=== PATIENT | male | born 1930 | race Caucasian/White ===

== ENCOUNTER 2016-05-30 09:55 | Inpatient (IN) | payer MEDICARE, OTHER ==
[2016-05-30] VITALS (8 sets, daily range): BP systolic 110–150; BP diastolic 58–67; O2SAT 95
[~2016-05-30] VITALS: Ht 165.1 cm; Wt 84.8 kg
[2016-05-30] MEDS ORDERED: ASPIRIN 81 MG CHEW TABLET PO ONE (10:15)
[2016-05-30] MEDS ORDERED: IPRATROPIUM 0.5MG/ALBUTEROL 2.5MG INH SOL UD 3ML (DUONEB)(J7620) NEB ONE ×3 (10:15→18:15)
[2016-05-30] MEDS ORDERED: methylPREDNISolone INJ 125 MG/2 ML VIAL (J2930) IV ONE (10:15)
[2016-05-30] MEDS ORDERED: cefTRIAXone SOD 2 GM in D5W MINI-BAG PLUS 50 ML IV ONE (10:30)
[2016-05-30] MEDS ORDERED: AZITHROMYCIN INJ 500 MG, VIAL MATE ADAPTER 1 EACH in D5W 250 ML IV ONE (10:30)
[2016-05-30] MEDS ORDERED: DILUENT IV ONE (10:45)
[2016-05-30] MEDS ORDERED: NS IV ONE (10:45)
[2016-05-30 11:07] LABS: CALCIUM LEVEL 8.2 MG/DL (8.8-10.2); CREATININE FOR GFR 3.91 MG/DL (0.70-1.30); GLOMERULAR FILTRATION RATE 15.7 (>35); POTASSIUM SERUM 3.8 MEQ/L (3.5-5.1)
[2016-05-30 11:08] LABS: MEAN CORPUSCULAR HEMOGLOBIN 29.7 pg (27.0-33.0); MEAN CORPUSCULAR VOLUME 87.4 fl (80.0-96.0); PLATELET COUNT, AUTOMATED 126 k/mm3 (150-450); RED CELL DISTRIBUTION WIDTH 13.3 % (11.5-14.5)
[2016-05-30 11:27] LABS: BANDS 17 % (< 11); POIKILOCYTOSIS 1+
--- NOTE | 2016-05-30 11:34 | REP ---
AP PORTABLE CHEST: 05/30/2016 CLINICAL HISTORY: Cough, dyspnea. FINDINGS: No prior study. Lungs are hyperinflated. There is a peripheral opacity fairly extensive right mid and lower lung zone. This suggests consolidative pneumonia. Underlying mass could be obscured. There is a small of pleural effusion suggestive of blunting of the right CP angle. Left lung is without infiltrate or effusion. There is underlying fibrosis. Heart size borderline for portable technique. The aorta is mildly tortuous. IMPRESSION: 1. Large consolidative opacity right mid and lower lung zone peripherally extending towards the hilum. Small right effusion. Left lung clear. Pneumonia suspected. Underlying obscured lesion could not be entirely excluded. Please correlate clinically. Signed by Dung Fishman MD 05/30/2016 05:14 P
[2016-05-30] MEDS ORDERED: ATEN50TA2 PO (11:50)
[2016-05-30] MEDS ORDERED: BAYE81TA7 PO (11:50)
[2016-05-30] MEDS ORDERED: ALBU0.63 INH (11:50)
[2016-05-30] MEDS ORDERED: [UNRECOGNIZED DRUG - CODE] PO (11:50)
[2016-05-30] MEDS ORDERED: HYDR25TAB PO (11:50)
[2016-05-30] MEDS ORDERED: ONDANSETRON 4MG/2ML VIAL (J2405) IV PRN (12:30)
[2016-05-30] MEDS ORDERED: NS 1,000 ML IV ONE (12:30)
--- NOTE | 2016-05-30 14:44 | ECGEPIP ---
Stationary ECG Study [facility] - ED Test Date: 2016-05-30 Pat Name: LEONID BENITEZ Department: Room: - Gender: M Application Support Consultant: : [id number] Requested By: Radha Marks Order Number: [id number] Reading MD: Joey River Measurements Intervals [place] Rate: 85 P: 44 [place]: 180 QRS: 27 QRSD: 85 T: 49 QT: 366 QTc: 436 Interpretive Statements SINUS RHYTHM NO PRIORS Electronically Signed On 05-30-2016 14:44:03 EDT by Joey River
--- NOTE | 2016-05-30 15:05 | REP ---
CT CHEST WITHOUT CONTRAST: 05/30/2016 COMPARISON: Portable chest today. CLINICAL HISTORY: Fever, chills, cough. Abnormal chest x-ray. FINDINGS: Scanning through the chest with coronal and sagittal reconstructions provided. There is extensive peripheral consolidation in the right upper, middle and lower lobes as well as deep sulcus consolidative atelectasis or infiltrate in the right lower lobe. There is a small effusion posteriorly in the lower lung zone. I do not see definite mass. There is slight volume loss in the right hemithorax and some compensatory hyperinflation of the left lung. Some underlying fibrosis and COPD noted. The left lung showed no acute finding. Heart borderline size but no pericardial thickening or effusion. A few small sub-centimeter nodes in the mediastinum. Calcifications in the aorta without aneurysm. No axillary, or supraclavicular mass. Bone windows show no acute finding in the sternum, manubrium, medial heads of the clavicles, humeral heads, scapulae or ribs. There are degenerative changes in the spine without acute compression deformity of destructive lesion. In the upper abdomen that portion of liver and spleen included show no mass or focal lesion. No glands are intact. That portion of the pancreas included normal gallbladder without calcified stone. Upper poles kidneys intact. No hiatal hernia. IMPRESSION: 1. Extensive peripheral consolidation and some air bronchograms right upper lobe, some in the superior segment right lower lobe and minimally in the lateral segment of the right middle lobe. This represents acute pneumonia. No gross mass or adenopathy at the hilum and mediastinum. Recommend followup radiographically to confirm clearing of the infiltrate. No other acute finding. Signed by Dung Fishman MD 05/30/2016 05:20 P
[2016-05-30] MEDS ORDERED: NS 1,000 ML IV SCH (15:45)
[2016-05-30] MEDS: CYANOCOBALAMIN 250 MCG TABLET PO SCH (16:29)
--- NOTE | 2016-05-30 16:56 | REP ---
RENAL ULTRASOUND: Real-time sonographic evaluation of the kidneys performed. The kidneys are normal in size and echotexture, the right kidney measuring 11.5 x 4.6 x 4.6 cm and left kidney 10.8 x 3.5 x 4.6 cm. There is no hydronephrosis bilaterally. There is no renal mass or nephrolithiasis identified. The urinary bladder is not well distended and not well evaluated. IMPRESSION: Negative renal ultrasound. Signed by Ren Galindo MD 05/31/2016 04:20 P
--- NOTE | 2016-05-30 17:11 | HPEPDOC ---
General Date of Admission May 30, 2016 at 12:17 Other Providers PCP: MELINDA in [place] Attending Physician: VIANEY JACQUES MD Chief Complaint The patient is a 85-year-old male admitted with a reason for visit of Hypotension. Source: Patient, Family, EMS notes reviewed Exam Limitations: Hard of hearing Timing/Duration: Day(s), Getting worse Severity: Moderate History of Present Illness Mr. Royal is an 85-year-old male with a past medical history of COPD and hypertension. He was in his usual state of health until yesterday morning when he awoke and was significantly short of breath. At baseline he is able to enjoy all of this activities without restriction, he is able to go shopping and ascend and descend flights of stairs without trouble, he does say that his COPD is advanced, and he has some wheezing, but this has no restriction on his daily life. Yesterday, he really has been unable to get around the house much, and now in the ED even just trying to get up and out of the chair causes him to be short of breath. Because he is being getting progressively worse he went to urgent care earlier, who sent him over to the hospital for further evaluation. He does admit to having fevers, chills but no rigors, denies night sweats, denies any recent changes in weight. He does have a cough, it is productive of yellowish and greenish and brownish sputum, and states that today it has begun to have some blood tinge to it. He does complain of some mild chest pain which occurs when coughing, it is located on the right side of his chest and wraps around approximately the mid thorax, this is not present at rest, it is described as painful (not dull or vice-like). His shortness of breath is worse upon laying down, however this is a chronic issue, and he often has to sleep propped up on pillows, and he is unable to lie on his back, but has to sleep on his side. He does admit to having some blurred vision this morning, but this is improved since the administration of fluids here in the ED. Home Medications Scheduled Aspirin (Loraine Low Dose) 81 Mg Tab 81 MG PO DAILY (Reported) Atenolol (Atenolol) 50 Mg Tab 75 MG PO DAILY (Reported) Cyanocobalamin (B-12) 250 Mcg Tab 250 MCG PO DAILY (Reported) Hydrochlorothiazide (Hydrochlorothiazide) 25 Mg Tab 25 MG PO DAILY (Reported) Scheduled PRN Albuterol Sulfate (Albuterol Sulfate) 0.63 Mg/3 Ml Neb 0.63 MG INH PRN PRN PRN SHORTNESS OF BREATH (Reported) Allergies Coded Allergies: No Known Allergies (Verified , 08/26/02) Past Medical History Medical History Chronic obstructive pulmonary disease, Hypertension Surgical History Nasal surgery Bilateral cataract removal Family History Significant Family History: Cancer, Heart disease, Hypertension Social History * Smoker: quit greater than 1 year, greater than 1 pack/day (168 pack years) Alcohol: Denies Drugs: denies Recent Travel/Sick Contacts: Reports: Recent sick contacts (Significant other has had a cough for 2 weeks, being treated as outpatient), Denies: Recent travel Patient is retired but worked at [employer]. They did have asbestos her on the pipes which was cleaned off during the time he was working there, but he was not involved in the removal of the asbestos, and did not have direct contact with it. Positive for solvent exposure. Drinks 4 cups of coffee per day. Has a dog (Pug), no contact with birds. No recent travel to the . Traveled to [place] in the 1950s. Active and walks outside about 20 times per day without limitations. Sleeps with multiple pillows and get shortness of breath when supine. Review of Symptoms Constitutional: Reports: Chills, Fever (subjective), Denies: Night Sweats, Weight Loss Eyes: Reports: Vision change (Blurred vision yesterday morning) ENT: Denies: Head Aches Skin: Denies: Lesions, Rash Pulmonary: Reports: Cough (Blood tinged sputum), Dyspnea Cardiovascular: Reports: Chest Pain (During coughing, from midline spreading out towards the right side), Denies: Edema Gastrointestinal: Denies: Abdominal Pain, Constipation, Diarrhea, Nausea, Vomiting Musculoskeletal: Denies: Arm Pain, Shoulder Pain Neurological: Denies: Change in speech, Numbness, Weakness Psych: Reports: Mood Normal Physical Examination General Exam: Positive: Alert, Cooperative, Mild Distress Eye Exam: Positive: EOMI, Negative: Sclera icteric ENT Exam: Positive: Nares Patent (Nasal strip applied, uses regularly) Neck Exam: Negative: JVD Chest Exam: Positive: Rhonchi, Wheezing Heart Exam: Positive: Rate Normal, Regular Rhythm, Negative: Gallops, Murmurs, Rubs Abdomen Exam: Positive: Normal bowel sounds, Soft, Negative: Tenderness Extremity Exam: Positive: Normal pulses, Negative: Edema Skin Exam: Negative: Lesion, Rash Neuro Exam: Positive: Normal Speech, Normal Tone Psych Exam: Positive: Mental status NL, Oriented x 3 Vital Signs Vital Signs Date Time Temp Pulse Resp B/P Pulse Ox O2 Delivery O2 Flow Rate FiO2 05/30/16 13:58 92 102/58 94 05/30/16 12:16 98.2 05/30/16 11:14 Nasal Cannula 4 05/30/16 10:59 20 Laboratory Data Labs 24H Laboratory Tests 2 05/30/16 10:09: Anion Gap 12, B-Type Natriuretic Peptide 241H, Band Neutrophils 17H, White Blood Count 15.0H, Red Blood Count 4.45, Hemoglobin 13.2L, Hematocrit 38.9L, Mean Corpuscular Volume 87.4, Mean Corpuscular Hemoglobin 29.7, Mean Corpuscular Hemoglobin Concent 34.0, Red Cell Distribution Width 13.3, Platelet Count 126L, Neutrophils (%) (Auto) , Lymphocytes (%) (Auto) , Monocytes (%) ( Auto) , Eosinophils (%) (Auto) , Basophils (%) (Auto) , Neutrophils # (Auto) , Lymphocytes # (Auto) , Monocytes # (Auto) , Eosinophils # (Auto) , Basophils # ( Auto) , Blood Urea Nitrogen 40H, Creatinine 3.91H, Sodium Level 137, Potassium Level 3.8, Chloride Level 100, Carbon Dioxide Level 25, Calcium Level 8.2L, Total Creatine Kinase 336H, Creatine Kinase MB 9.8H, Creatine Kinase MB Relative Index 2.91, Glomerular Filtration Rate 15.7L, Lactic Acid Level 4.4*H, Large Unclassified Cells # , Large Unclassified Cells % , Lymphocytes (Manual) 9L, Metamyelocytes 4H, Monocytes (Manual) 2, Myelocytes 1H, Neutrophils 67, Platelet Estimate DECREASED, Poikilocytosis 1+, Thyroid Stimulating Hormone (TSH ) 3.210, Troponin I 0.09 CBC/BMP Laboratory Tests 05/30/16 10:09 Calcium Level 8.2 L, Total Creatine Kinase 336 H, Red Blood Count 4.45, Mean Corpuscular Volume 87.4, Mean Corpuscular Hemoglobin 29.7, Mean Corpuscular Hemoglobin Concent 34.0, Red Cell Distribution Width 13.3, Neutrophils (%) (Auto ) , Lymphocytes (%) (Auto) , Monocytes (%) (Auto) , Eosinophils (%) (Auto) , Basophils (%) (Auto) , Neutrophils # (Auto) , Lymphocytes # (Auto) , Monocytes # (Auto) , Eosinophils # (Auto) , Basophils # (Auto) Microbiology Microbiology 05/30/16 Blood Culture, Received Pending 05/30/16 Blood Culture, Received Pending 05/30/16 Influenza Virus Type A Antigen - Final, Complete 05/30/16 Influenza Virus Type B Antigen - Final, Complete Problems (1) Pneumonia Status: Acute Problem Text: Will admit the patient to PCU. He is already received 2 L of normal saline in the ED, we will administer an additional 2 L at this time as he has no cardiac or renal history. He has responded well to fluid administration so far. We'll check strict I's and O's, he received 1 dose of Rocephin and azithromycin in the ED, given the fact that he is septic with a lactic acidosis we'll broaden his spectrum and treat him empirically with Zosyn. (2) Severe sepsis Status: Acute Problem Text: Aggressive fluid management, empiric treatment with Zosyn, repeat lactic acid. Just to be safe, we will also check an echocardiogram to rule out cardiac cause of hypotension and decreased perfusion. (3) Lactic acidosis Status: Acute (4) Hypotension Status: Acute (5) COPD (chronic obstructive pulmonary disease) Status: Chronic Problem Text: Continue with home regimen of bronchodilators (6) Acute kidney injury Status: Acute Problem Text: Presumed acute kidney injury as he is unaware of any previous renal problems, but because he is seen by the [facility] we do not have here any of his recent records. Given his entire clinical picture, we will check a UA and renal ultrasound. (7) Acute respiratory failure with hypoxia Status: Acute (8) Hypertension Status: Chronic (9) Leukocytosis Status: Acute Plan / VTE VTE Prophylaxis Ordered?: Yes (Francisco Javier's and sequential) CATRACHITO ONTIVEROS DO May 30, 2016 14:58
[2016-05-30] MEDS ORDERED: IPRATROPIUM 0.5MG/ALBUTEROL 2.5MG INH SOL UD 3ML (DUONEB)(J7620) NEB PRN (18:15)
[2016-05-30] MEDS: PIPERACILLIN/TAZOBACTAM SOD 2.25 GM in D5W MINI-BAG PLUS 50 ML IV SCH (18:39)
--- NOTE | 2016-05-30 18:59 | REP ---
Portable chest x-ray: Sitting AP view. History: Shortness of breath. Findings: There is a large dense peripheral infiltrate in the right mid lung along the lateral chest wall compatible with pneumonia. This appears a little more extensive medially overlying the right heart on the current radiograph. The lungs are otherwise clear. Heart is not felt to be enlarged. The patient is rotated somewhat to the right for the current exposure. EKG monitoring electrodes overlie the chest. Impression: Radiographic progression in the large dense infiltrate in the right lung. Signed by Arnav Leija MD 05/30/2016 07:39 P
[2016-05-30 19:08] LABS: CREATININE FOR GFR 3.6 MG/DL (0.70-1.30); GLOMERULAR FILTRATION RATE 17.3 (>35)
[2016-05-30 19:15] LABS: POTASSIUM SERUM 5.2 MEQ/L (3.5-5.1)
[2016-05-30] MEDS: IPRATROPIUM 0.5MG/ALBUTEROL 2.5MG INH SOL UD 3ML (DUONEB)(J7620) NEB SCH ×2 (19:31→23:51)
[2016-05-31] VITALS (8 sets, daily range): BP systolic 108–150; BP diastolic 52–65
[2016-05-31] MEDS: PIPERACILLIN/TAZOBACTAM SOD 2.25 GM in D5W MINI-BAG PLUS 50 ML IV SCH ×4 (00:05→17:06)
[2016-05-31 00:52] LABS: CALCIUM LEVEL 7.3 MG/DL (8.8-10.2); CREATININE FOR GFR 3.62 MG/DL (0.70-1.30); GLOMERULAR FILTRATION RATE 17.2 (>35)
[2016-05-31] MEDS: diphenhydrAMINE 25 MG CAP PO PRN ×2 (02:11→20:49)
[2016-05-31] MEDS: ACETAMINOPHEN TAB 650MG DOSE (2X325MG) PO PRN ×2 (02:12→20:49)
[2016-05-31] MEDS: IPRATROPIUM 0.5MG/ALBUTEROL 2.5MG INH SOL UD 3ML (DUONEB)(J7620) NEB SCH ×6 (03:17→23:16)
[2016-05-31 04:58] LABS: MEAN CORPUSCULAR HEMOGLOBIN 29.4 pg (27.0-33.0); MEAN CORPUSCULAR HGB CONC 33.2 g/dl (32.0-36.5); MEAN CORPUSCULAR VOLUME 88.5 fl (80.0-96.0); PLATELET COUNT, AUTOMATED 112 k/mm3 (150-450); RED CELL DISTRIBUTION WIDTH 13.4 % (11.5-14.5); WHITE BLOOD COUNT 10.9 K/mm3 (4.0-10.0)
[2016-05-31 05:08] LABS: ALBUMIN 2.5 GM/DL (3.2-5.2); CREATININE FOR GFR 3.59 MG/DL (0.70-1.30); GLOMERULAR FILTRATION RATE 17.3 (>35); PHOSPHORUS LEVEL 3.8 MG/DL (2.5-4.9); POTASSIUM SERUM 3.8 MEQ/L (3.5-5.1)
[2016-05-31 05:45] LABS: BANDS 9 % (< 11)
[2016-05-31] MEDS: ASPIRIN 81 MG ENTERIC TAB PO SCH (08:59)
[2016-05-31] MEDS: CYANOCOBALAMIN 250 MCG TABLET PO SCH (08:59)
--- NOTE | 2016-05-31 11:18 | IPNPDOC ---
Subjective Date Seen The patient was seen on 05/31/16. Subjective Chief Complaint/HPI The patient is a 85-year-old male admitted with a reason for visit of Hypotension. Events since last encounter Patient is sitting in his bed in no apparent distress. The previous night, he had diarrhea 4 times with 1 episode of incontinence. He states that the stool is watery without a foul odor, and it is "polka dotted with different colors of light brown". He states that his shortness of breath has improved, but it still takes him about 5 minutes to catch his breath after walking to the bathroom. He states that he has a hard time swallowing medications, but he has had this problem for an extended period of time. Constitutional: Denies: Chills, Fever, Night Sweats Eyes: Denies: Vision change ENT: Denies: Head Aches Skin: Denies: Lesions, Rash Pulmonary: Reports: Cough, Dyspnea, Denies: Pleuritic Chest Pain Cardiovascular: Denies: Chest Pain, Palpitations Gastrointestinal: Reports: Diarrhea, Denies: Abdominal Pain, Hematochezia, Melena, Nausea, Vomiting Genitourinary: Denies: Dysuria Neurological: Denies: Numbness, Weakness Psych: Reports: Mood Normal Objective Physical Examination General Exam: Positive: Alert, Cooperative Eye Exam: Positive: EOMI ENT Exam: Positive: Nares Patent (Nasal strip applied, uses regularly) Neck Exam: Negative: JVD Chest Exam: Positive: Diminished, Rhonchi Heart Exam: Positive: Normal S1, Normal S2, Rate Normal, Regular Rhythm, Negative: Gallops, Murmurs, Rubs Abdomen Exam: Positive: Normal bowel sounds, Soft, Negative: Tenderness Extremity Exam: Positive: Normal pulses, Negative: Edema Skin Exam: Negative: Lesion, Rash Neuro Exam: Positive: Normal Speech, Normal Tone Psych Exam: Positive: Mental status NL, Oriented x 3 Assessment /Plan Assessment Alexi Royal is a 85 year old male who presented with shortness of breath most likely secondary to pneumonia. Problems (1) Pneumonia Status: Acute Problem Text: Continue antibiotic treatment with Zosyn. Sputum, blood, and urine cultures pending. (2) Severe sepsis Status: Acute Problem Text: Fluid management, empiric treatment with Zosyn, repeat lactic acid showed improvement. (3) Lactic acidosis Status: Acute Response to Treatment: Improving (4) Hypotension Status: Acute Response to Treatment: Improving Problem Text: Resolving, continue with fluid management. (5) COPD (chronic obstructive pulmonary disease) Status: Chronic Problem Text: Continue with home regimen of bronchodilators. Attempt to wean oxygen as tolerated (6) Acute kidney injury Status: Acute Problem Text: Presumed acute kidney injury as he is unaware of any previous renal problems, but [facility] not have here any of his recent records. Renal US negative, will check FeNa and FeUrea (7) Acute respiratory failure with hypoxia Status: Acute Response to Treatment: Improving Problem Text: Patient is on 2L NC, improved from 4L yesterday (8) Hypertension Status: Chronic Response to Treatment: Stable (9) Leukocytosis Status: Acute Response to Treatment: Improving Problem Text: Continue treatement of underlying infection. (10) Diarrhea Status: Acute Problem Text: just started last night. will check a c. diff Plan/VTE VTE Prophylaxis Ordered?: Yes (Francisco Javier's and sequential) Plan/Urinary Catheter Reason for insertion/continuin: Critical Pt monitoring Disposition Attending Note: I have independently examined this patient and all aspects of the exam and treatment decisions have been discussed with the resident. A member of the hospitalist staff will continue to follow this patient through discharge. VS, I&O, 24H, Fishbone Vital Signs/I&O Vital Signs Date Time Temp Pulse Resp B/P Pulse Ox O2 Delivery O2 Flow Rate FiO2 05/31/16 04:06 103 150/65 05/31/16 04:00 98.2 20 93 Nasal Cannula 2.0 I&O- Last 24 Hours up to 6 AM 05/31/16 06:00 Intake Total 4950 ml Output Total 275 ml Balance 4675 ml Laboratory Data 24H LABS Laboratory Tests 2 05/30/16 10:09: Anion Gap 12, B-Type Natriuretic Peptide 241H, Band Neutrophils 17H, White Blood Count 15.0H, Red Blood Count 4.45, Hemoglobin 13.2L, Hematocrit 38.9L, Mean Corpuscular Volume 87.4, Mean Corpuscular Hemoglobin 29.7, Mean Corpuscular Hemoglobin Concent 34.0, Red Cell Distribution Width 13.3, Platelet Count 126L, Neutrophils (%) (Auto) , Lymphocytes (%) (Auto) , Monocytes (%) ( Auto) , Eosinophils (%) (Auto) , Basophils (%) (Auto) , Neutrophils # (Auto) , Lymphocytes # (Auto) , Monocytes # (Auto) , Eosinophils # (Auto) , Basophils # ( Auto) , Blood Urea Nitrogen 40H, Creatinine 3.91H, Sodium Level 137, Potassium Level 3.8, Chloride Level 100, Carbon Dioxide Level 25, Calcium Level 8.2L, Total Creatine Kinase 336H, Creatine Kinase MB 9.8H, Creatine Kinase MB Relative Index 2.91, Glomerular Filtration Rate 15.7L, Lactic Acid Level 4.4*H, Large Unclassified Cells # , Large Unclassified Cells % , Lymphocytes (Manual) 9L, Metamyelocytes 4H, Monocytes (Manual) 2, Myelocytes 1H, Neutrophils 67, Platelet Estimate DECREASED, Poikilocytosis 1+, Thyroid Stimulating Hormone (TSH ) 3.210, Troponin I 0.09 05/30/16 14:50: Lactic Acid Followup at 4 Hours 2.3*H 05/30/16 15:48: Urine Amorphous Sediment , Urine Appearance CLOUDYH, Urine Color SARAH, Urine pH 5.0, Urine Specific [place] 1.020, Urine Protein 2+H, Urine Glucose (UA) 1+H , Urine Ketones TRACEH, Urine Urobilinogen 0.2, Urine Bilirubin 1+H, Urine Leukocyte Esterase TRACEH, Urine Bacteria (Auto) 1+H, Urine Blood 1+H, Urine Calcium Carbonate Cryst(Auto) , Urine Calcium Oxalate Cryst (Auto) , Urine Calcium Phosphate [place] (Auto) , Urine Cellular Casts , Urine Cystine Crystals , Urine Granular Casts (Auto) , Urine Hyaline Casts (Auto) 13, Urine Leucine Crystals , Urine Mucus (Auto) SMALL, Urine Nitrite NEGATIVE, Urine Oval Fat Bodies (Auto) , Urine RBC (Auto) 6H, Urine Renal Epithelial Cells , Urine Sperm (Auto) , Urine Squamous Epithelial Cells 2, Urine Transitional Epithelial Cells , Urine Trichomonas (Auto) , Urine Triple Phosphate Cryst (Auto) , Urine Tyrosine Crystals , Urine Uric Acid Crystals (Auto) , Urine WBC (Auto) 22H, Urine Waxy Casts (Auto) , Urine Yeast-Like Cells (Auto) 05/30/16 17:59: Anion Gap 10, Blood Urea Nitrogen 41H, Creatinine 3.60H, Sodium Level 140, Potassium Level 5.2H, Chloride Level 105, Carbon Dioxide Level 25, Calcium Level 7.0L, Total Creatine Kinase 387H, Creatine Kinase MB 14.9H, Creatine Kinase MB Relative Index 3.85, Glomerular Filtration Rate 17.3L, Troponin I 0.05 #, Prostate Specific Antigen 12.60H 05/30/16 19:03: B-Type Natriuretic Peptide 439H 05/31/16 00:04: Anion Gap 11, Blood Urea Nitrogen 47H, Creatinine 3.62H, Sodium Level 138, Potassium Level 4.0#, Chloride Level 105, Carbon Dioxide Level 22, Calcium Level 7.3L, Total Creatine Kinase 371H, Creatine Kinase MB 14.9H, Creatine Kinase MB Relative Index 4.01H, Glomerular Filtration Rate 17.2L, Troponin I 0.08# 05/31/16 04:37: Anion Gap 12, Blood Urea Nitrogen 47H, Creatinine 3.59H, Sodium Level 139, Potassium Level 3.8, Chloride Level 105, Carbon Dioxide Level 22, Calcium Level 7.0L, Total Creatine Kinase 335H, Creatine Kinase MB 14.3H, Creatine Kinase MB Relative Index 4.26H, Glomerular Filtration Rate 17.3L, Troponin I 0.11#H, Albumin 2.5L, Band Neutrophils 9, White Blood Count 10.9H, Red Blood Count 4.51 , Hemoglobin 13.3L, Hematocrit 39.9L, Mean Corpuscular Volume 88.5, Mean Corpuscular Hemoglobin 29.4, Mean Corpuscular Hemoglobin Concent 33.2, Red Cell Distribution Width 13.4, Platelet Count 112L, Neutrophils (%) (Auto) , Lymphocytes (%) (Auto) , Monocytes (%) (Auto) , Eosinophils (%) (Auto) , Basophils (%) (Auto) , Neutrophils # (Auto) , Lymphocytes # (Auto) , Monocytes # (Auto) , Eosinophils # (Auto) , Basophils # (Auto) , Large Unclassified Cells # , Large Unclassified Cells % , Lymphocytes (Manual) 6L, Metamyelocytes 1H, Monocytes (Manual) 1, Myelocytes 1H, Neutrophils 82H, Phosphorus Level 3.8, Platelet Estimate DECREASED CBC/BMP Laboratory Tests 05/30/16 10:09 Calcium Level 8.2 L, Total Creatine Kinase 336 H, Red Blood Count 4.45, Mean Corpuscular Volume 87.4, Mean Corpuscular Hemoglobin 29.7, Mean Corpuscular Hemoglobin Concent 34.0, Red Cell Distribution Width 13.3, Neutrophils (%) (Auto ) , Lymphocytes (%) (Auto) , Monocytes (%) (Auto) , Eosinophils (%) (Auto) , Basophils (%) (Auto) , Neutrophils # (Auto) , Lymphocytes # (Auto) , Monocytes # (Auto) , Eosinophils # (Auto) , Basophils # (Auto) 05/30/16 17:59 Calcium Level 7.0 L, Total Creatine Kinase 387 H 05/31/16 00:04 Calcium Level 7.3 L, Total Creatine Kinase 371 H 05/31/16 04:37 Red Blood Count 4.51, Mean Corpuscular Volume 88.5, Mean Corpuscular Hemoglobin 29.4, Mean Corpuscular Hemoglobin Concent 33.2, Red Cell Distribution Width 13.4 , Neutrophils (%) (Auto) , Lymphocytes (%) (Auto) , Monocytes (%) (Auto) , Eosinophils (%) (Auto) , Basophils (%) (Auto) , Neutrophils # (Auto) , Lymphocytes # (Auto) , Monocytes # (Auto) , Eosinophils # (Auto) , Basophils # ( Auto) , Anion Gap 12 Microbiology Microbiology 05/30/16 Blood Culture, Received Pending 05/30/16 Blood Culture, Received Pending 05/30/16 Influenza Virus Type A Antigen - Final, Complete 05/30/16 Influenza Virus Type B Antigen - Final, Complete 05/30/16 Urine Culture, Received Pending CATRACHITO ONTIVEROS DO May 31, 2016 08:12 LAINEY PICKETT DO May 31, 2016 15:49
--- NOTE | 2016-05-31 19:13 | ECHO ---
DATE OF PROCEDURE: 05/30/2016 AGE: 85 GENDER: Male HEIGHT: 65 inches WEIGHT: 169 pounds BODY SURFACE AREA: 1.84 m2 PATIENT LOCATION: Inpatient, ICU, room 3207 REFERRING PHYSICIAN: Dr. Nancy Dowell INDICATION: Syncope. 2-D MEASUREMENTS: RV: 3.9 cm LV: 4.5 cm Septum: 1.3 cm Posterior wall: 1.3 cm Aortic root: 3.1 cm LA: 4.0 cm LVEF: 65% DOPPLER MEASUREMENTS: AV: Incorrect, off by more than 30 degrees LVOT: Incorrect, off by more than 30 degrees angle. LVOT diameter: 2.3 cm MV measurements were also incorrect as being off angle by more than 30 degrees. PV: 1.0 m/s Pulmonary artery acceleration time: 106 ms RVSP: 30 mmHg IVC: 1.8 cm COMMENTS: Normal sinus rhythm without intraventricular conduction disturbance. Technically difficult study in light of the patient's chronic obstructive pulmonary disease (COPD). Some diagnostically useful information was still obtained. Mildly dilated left atrium, but normal left ventricular size. Right heart chambers appear to be upper limits of normal. LV wall thickness was mildly increased symmetrically. On real-time imaging from the parasternal and apical projections wall motion appeared to be symmetrical and normal to hyperkinetic. Mildly thickened mitral annulus, but normal leaflet thickness and excursion with no posterior systolic buckling. Three equal sized aortic cusps with marginally thickened cusp edges, but adequate cusp separation. Normal aortic root size. No apparent intracardiac mass or pericardial effusion. Color flow Doppler study taken from the parasternal and apical projections showed no apparent mitral or aortic insufficiency and only very mild tricuspid insufficiency (physiological findings). Guided continuous wave Doppler of his tricuspid valve allowed our estimation of his right ventricular systolic pressure (upper limits of normal to mildly increased). Pulsed and continuous wave Doppler of his pulmonary trunk taken from the subcostal short axis projection showed a normal peak systolic velocity against right ventricle (RV) outflow tract obstruction, but a borderline abbreviated pulmonary acceleration time suggestive of slight degree of elevated pulmonary vascular resistance. CONCLUSIONS: Technically difficult study in light of the patient's COPD. Unable to detect a structural or functional abnormality that would account for the patient's syncopal spell. Mild concentric left ventricle hypertrophy with hyperkinetic wall motion. Mildly dilated left atrium. Normal right heart chamber sizes and wall motion with Doppler evidence of borderline pulmonary hypertension. Normal IVC size and collapse against an elevated central venous pressure. Subtle, degenerative changes of the mitral aortic and aortic valvular apparatus without functionally significant valvular abnormality.
[2016-06-01] VITALS: BP 101/53
[2016-06-01] MEDS: PIPERACILLIN/TAZOBACTAM SOD 2.25 GM in D5W MINI-BAG PLUS 50 ML IV SCH ×5 (00:24→23:17)
[2016-06-01 04:00] VITALS: BP 103/54
[2016-06-01] MEDS: IPRATROPIUM 0.5MG/ALBUTEROL 2.5MG INH SOL UD 3ML (DUONEB)(J7620) NEB SCH ×6 (04:06→23:15)
[2016-06-01 05:35] LABS: BASO % 0.1 % (0.0-1.0); EOS % 0.1 % (0.0-3.0); LARGE UNSTAINED CELL # 0.1 K/mm3 (0.0-0.4); LARGE UNSTAINED CELL % 0.9 % (0.0-4.0); LYMPH # 0.6 K/mm3 (1.5-4.5); LYMPH % 5.4 % (24.0-44.0); MEAN CORPUSCULAR HEMOGLOBIN 28.2 pg (27.0-33.0); MEAN CORPUSCULAR HGB CONC 32.5 g/dl (32.0-36.5); MEAN CORPUSCULAR VOLUME 86.9 fl (80.0-96.0); MONO # 0.3 K/mm3 (0.0-0.8); MONO % 3.1 % (0.0-5.0); NEUTROPHILS # 10.1 K/mm3 (1.8-7.7); NEUTROPHILS % 90.5 % (36.0-66.0); PLATELET COUNT, AUTOMATED 127 k/mm3 (150-450); RED CELL DISTRIBUTION WIDTH 13.5 % (11.5-14.5); WHITE BLOOD COUNT 11.1 K/mm3 (4.0-10.0)
[2016-06-01 05:42] LABS: ALBUMIN 2.3 GM/DL (3.2-5.2); CALCIUM LEVEL 7.5 MG/DL (8.8-10.2); CREATININE FOR GFR 2.68 MG/DL (0.70-1.30); GLOMERULAR FILTRATION RATE 24.3 (>35); PHOSPHORUS LEVEL 2.7 MG/DL (2.5-4.9); POTASSIUM SERUM 3.5 MEQ/L (3.5-5.1)
[2016-06-01 08:00] VITALS: BP 120/58
[2016-06-01] MEDS: CYANOCOBALAMIN 250 MCG TABLET PO SCH (08:18)
[2016-06-01] MEDS: ASPIRIN 81 MG ENTERIC TAB PO SCH (08:18)
[2016-06-01] MEDS: ATENOLOL 25 MG TAB PO SCH (08:18)
[2016-06-01] MEDS: NS 1,000 ML IV SCH ×2 (08:19→20:27)
[2016-06-01] MEDS ORDERED: FAMOTIDINE 20 MG TAB PO PRN (10:30)
--- NOTE | 2016-06-01 11:27 | IPNPDOC ---
Subjective Date Seen The patient was seen on 06/01/16. Subjective Chief Complaint/HPI The patient is a 85-year-old male admitted with a reason for visit of Hypotension. Events since last encounter Patient is sitting in bed in no apparent distress. He feels that his condition is improving, with no acute overnight events. His oxygen saturation is 94% on room air so the oxygen will be discontinued. He does not complain of shortness of breath or chest pain. He is still coughing up brown sputum. His diarrhea has subsided and denies any blood in his urine or stools. His appetite has increased. Overall he feels better with no complaints. Constitutional: Denies: Chills, Fever, Night Sweats Eyes: Denies: Vision change ENT: Denies: Head Aches Pulmonary: Reports: Cough (Brown sputum production), Denies: Dyspnea Cardiovascular: Denies: Chest Pain, Palpitations Gastrointestinal: Denies: Abdominal Pain, Constipation, Diarrhea, Hematochezia , Melena, Nausea, Vomiting Genitourinary: Denies: Dysuria, Hematuria Psych: Reports: Mood Normal Objective Physical Examination General Exam: Positive: Alert, Cooperative, No Acute Distress Eye Exam: Positive: EOMI ENT Exam: Positive: Atraumatic, Nares Patent (Nasal strip applied, uses regularly) Neck Exam: Negative: JVD Chest Exam: Positive: Diminished, Rhonchi (Right lower lobe) Heart Exam: Positive: Normal S1, Normal S2, Rate Normal, Regular Rhythm, Negative: Gallops, Murmurs, Rubs Abdomen Exam: Positive: Normal bowel sounds, Soft, Negative: Tenderness Extremity Exam: Negative: Edema Skin Exam: Negative: Lesion, Rash Neuro Exam: Positive: Normal Speech Psych Exam: Positive: Mental status NL, Oriented x 3 Assessment /Plan Assessment Alexi Royal is a 85 year old male who presented with shortness of breath, chest pain, blurry vision, and a productive cough. Problems (1) Pneumonia Status: Acute Problem Text: Continue antibiotic treatment with Zosyn. Sputum culture showed growth of gram positive cocci in pairs, clusters, chains, and rods. Urine culture showed no growth of clinical significance. Blood culture shows no growth in 24 hours. Sputum is thick and brown. Shortness of breath is improving. No longer has the need for supplemental oxygen. Lung sounds are more clear than yesterday. (2) Severe sepsis Status: Acute Problem Text: Fluid management, empiric treatment with Zosyn. Blood pressure is stable, no fevers, but he does have periods of tachycardia. Unknown if this is his baseline or a new finding. Continued his home regimen of atenolol. (3) Lactic acidosis Status: Acute Response to Treatment: Improving (4) Hypotension Status: Acute Response to Treatment: Improving Problem Text: Resolving, continue with fluid management. (5) COPD (chronic obstructive pulmonary disease) Status: Chronic Problem Text: Continue with home regimen of bronchodilators. Oxygen supplementation is no longer necessary due to his saturation being in the 90's on room air. (6) Acute kidney injury Status: Acute Problem Text: Pressures continue to be on the low side, will continue with fluid management (7) Acute respiratory failure with hypoxia Status: Acute Response to Treatment: Improving Problem Text: Patient is no longer on supplemental oxygen. Will continue to monitor saturations in order to determine if he will need supplementation again during his stay. (8) Hypertension Status: Chronic Response to Treatment: Stable (9) Leukocytosis Status: Acute Response to Treatment: Improving Problem Text: Continue treatment of underlying infection. WBC are still elevated but stable. (10) Diarrhea Status: Acute Problem Text: C. diff was negative. Diarrhea has resolved. Possibly due to antibiotic use. Plan/VTE VTE Prophylaxis Ordered?: Yes (Francisco Javier's and sequential) Plan/Urinary Catheter Reason for insertion/continuin: Critical Pt monitoring Disposition Attending Note: I have independently examined this patient and all aspects of the exam and treatment decisions have been discussed with the resident. A member of the hospitalist staff will continue to follow this patient through discharge. Additionally, his calculated FeUrea 29.8 indicating a Pre-Renal condition. Will continue to hydrate, avoid nephrotoxic drugs. He appears to be cliinically improving. Should he not continue to show an improving trend in his renal function we may consider a nephrology consult. VS, I&O, 24H, Fishbone Vital Signs/I&O Vital Signs Date Time Temp Pulse Resp B/P Pulse Ox O2 Delivery O2 Flow Rate FiO2 06/01/16 04:00 98.3 95 18 103/54 95 Nasal Cannula 2.0 I&O- Last 24 Hours up to 6 AM 06/01/16 05:59 Intake Total 1045 ml Output Total 1450 ml Balance -405 ml Laboratory Data 24H LABS Laboratory Tests 2 05/31/16 12:00: Creatine Kinase MB 13.6H, Creatine Kinase MB Relative Index 4.27H, Total Creatine Kinase 318H, Troponin I 0.12H 05/31/16 12:50: Urine Random Creatinine 71.0, Urine Random Sodium 31 06/01/16 05:03: Albumin 2.3L, Blood Urea Nitrogen 58H, Creatinine 2.68H, Sodium Level 142, Potassium Level 3.5, Chloride Level 107, Carbon Dioxide Level 27, Anion Gap 8, White Blood Count 11.1H, Red Blood Count 4.36, Hemoglobin 12.3L, Hematocrit 37.8L, Mean Corpuscular Volume 86.9, Mean Corpuscular Hemoglobin 28.2, Mean Corpuscular Hemoglobin Concent 32.5, Red Cell Distribution Width 13.5, Platelet Count 127L, Neutrophils (%) (Auto) 90.5H, Lymphocytes (%) (Auto) 5.4L, Monocytes (%) (Auto) 3.1, Eosinophils (%) (Auto) 0.1, Basophils (%) (Auto) 0.1, Neutrophils # (Auto) 10.1H, Lymphocytes # (Auto) 0.6L, Monocytes # (Auto) 0.3, Eosinophils # (Auto) 0.0, Basophils # (Auto) 0.0, Calcium Level 7.5L, Glomerular Filtration Rate 24.3L, Large Unclassified Cells # 0.1, Large Unclassified Cells % 0.9, Phosphorus Level 2.7# CBC/BMP Laboratory Tests 06/01/16 05:03 Anion Gap 8, Red Blood Count 4.36, Mean Corpuscular Volume 86.9, Mean Corpuscular Hemoglobin 28.2, Mean Corpuscular Hemoglobin Concent 32.5, Red Cell Distribution Width 13.5, Neutrophils (%) (Auto) 90.5 H, Lymphocytes (%) (Auto) 5.4 L, Monocytes (%) (Auto) 3.1, Eosinophils (%) (Auto) 0.1, Basophils (%) (Auto ) 0.1, Neutrophils # (Auto) 10.1 H, Lymphocytes # (Auto) 0.6 L, Monocytes # ( Auto) 0.3, Eosinophils # (Auto) 0.0, Basophils # (Auto) 0.0 Microbiology Microbiology 05/30/16 Blood Culture - Preliminary, Resulted No growth after 24 hours . All specim... 05/30/16 Blood Culture - Preliminary, Resulted No growth after 24 hours . All specim... 05/31/16 Clostridium difficile (PCR) - Final, Complete 05/31/16 Gram Stain - Final, Resulted 05/31/16 Sputum Culture, Resulted Pending 05/30/16 Influenza Virus Type A Antigen - Final, Complete 05/30/16 Influenza Virus Type B Antigen - Final, Complete 05/30/16 Urine Culture - Final, Complete CATRACHITO ONTIVEROS DO Jun 01, 2016 08:13 LAINEY PICKETT DO Jun 01, 2016 13:57
[2016-06-01 14:20] VITALS: BP 163/79
[2016-06-01 22:00] VITALS: BP 127/58
[2016-06-02] MEDS: IPRATROPIUM 0.5MG/ALBUTEROL 2.5MG INH SOL UD 3ML (DUONEB)(J7620) NEB SCH ×2 (04:00→07:37)
[2016-06-02] MEDS: PIPERACILLIN/TAZOBACTAM SOD 2.25 GM in D5W MINI-BAG PLUS 50 ML IV SCH (05:29)
[2016-06-02 06:39] LABS: BASO % 0.2 % (0.0-1.0); EOS # 0.1 K/mm3 (0.0-0.50); EOS % 1.5 % (0.0-3.0); LARGE UNSTAINED CELL # 0.1 K/mm3 (0.0-0.4); LARGE UNSTAINED CELL % 1.3 % (0.0-4.0); LYMPH # 1.1 K/mm3 (1.5-4.5); LYMPH % 10.3 % (24.0-44.0); MEAN CORPUSCULAR HEMOGLOBIN 29.1 pg (27.0-33.0); MEAN CORPUSCULAR HGB CONC 34.2 g/dl (32.0-36.5); MEAN CORPUSCULAR VOLUME 84.9 fl (80.0-96.0); MONO # 0.4 K/mm3 (0.0-0.8); MONO % 4.4 % (0.0-5.0); NEUTROPHILS # 7.7 K/mm3 (1.8-7.7); NEUTROPHILS % 82.3 % (36.0-66.0); PLATELET COUNT, AUTOMATED 128 k/mm3 (150-450); RED CELL DISTRIBUTION WIDTH 13.5 % (11.5-14.5); WHITE BLOOD COUNT 9.3 K/mm3 (4.0-10.0)
[2016-06-02 06:49] LABS: ALBUMIN 2.2 GM/DL (3.2-5.2); CREATININE FOR GFR 1.66 MG/DL (0.70-1.30); GLOMERULAR FILTRATION RATE 42.2 (>35); PHOSPHORUS LEVEL 2.2 MG/DL (2.5-4.9); POTASSIUM SERUM 3.5 MEQ/L (3.5-5.1)
[2016-06-02] MEDS ORDERED: AUGM12TA10 PO ×3 (08:03→08:52)
[2016-06-02] MEDS: ASPIRIN 81 MG ENTERIC TAB PO SCH (08:15)
[2016-06-02] MEDS: CYANOCOBALAMIN 250 MCG TABLET PO SCH (08:15)
[2016-06-02 08:16] VITALS: BP 143/69
[2016-06-02] MEDS: ATENOLOL 25 MG TAB PO SCH (08:16)
[2016-06-02] MEDS ORDERED: ALBU0.63 INH (08:47)
--- NOTE | 2016-06-02 12:33 | ECGEPIP ---
Stationary ECG Study [facility] Test Date: 2016-05-31 Pat Name: LEONID BENITEZ Department: Room: [place] [address] Gender: M Frame Stylist: KAN : 1930 Requested By: CATRACHITO ONTIVEROS Order Number: [id number] Reading MD: Reg Burns Measurements Intervals [place] Rate: 90 P: 27 CO: 170 QRS: 20 QRSD: 83 T: 30 QT: 352 QTc: 431 Interpretive Statements SINUS RHYTHM Somewhat low voltages Otherwise normal No change from 05/30/16 Electronically Signed On 06-02-2016 12:33:13 EDT by Reg Burns
--- NOTE | 2016-06-02 19:57 | DS.PDOC ---
Discharge Summary General Date of Admission May 30, 2016 at 12:17 Date of Discharge June 02, 2016 Attending Physician: LAINEY PICKETT DO Discharge Summary PCP: [place] DISCHARGE DIAGNOSES: 1. Severe Sepsis 2. Community Acquired Pneumonia 3. Acute Respiratory Failure 4. Lactic Acidosis 5. Hypotension 6. Acute Kidney Injury 7. COPD HISTORY OF PRESENT ILLNESS & HOSPITAL COURSE: Patient was admitted with a 1 day history of shortness of breath, productive cough, vision changes, and dizziness. Chest XRay in the ER showed a large consolidative opacity on the right mid and lower lung zone peripherally extending towards the hilum. Small right effusion was seen and pneumonia was suspected. Blood tinged sputum was observed. His blood pressure got as low as 70/40 so he was started on aggressive IV hydration (4L normal saline) and empiric antibiotics (Rocephin and Azithromycin). The patient was admitted to the ICU and was switched to a more broad spectrum antibiotic (Zosyn). Due to low saturations, supplemental oxygen was needed. Over the course of the next two days, his saturations improved and oxygen supplementation was stopped on 06/01/2016. Due to his improving condition, the patient was moved out of the ICU into the Med/Surg floor. His sputum culture showed normal catracho. His kidney function has improved since admission and his WBC count has normalized. Blood cultures were negative and urine cultures showed no significant growth. Patient denies and shortness of breath, chest pain, blood tinged sputum, or dizziness. Patient states that he feels better and is ready to go home. Patient will be discharged on PO antibiotics (Augmentin) and will be told to follow up with his primary care provider in 7-10 days. DISCHARGE MEDICATIONS: Please see below. ALLERGIES: Please see below. PHYSICAL EXAMINATION ON DISCHARGE: VITAL SIGNS: Please see below. GENERAL: Pleasant gentleman in no apparent distress. Appears his stated age. HEENT: Normocephalic, atraumatic. EOMI. Moist mucus membranes. Nares patent with nasal strip applied. NECK: Neck supple without any masses. No JVD. CARDIOVASCULAR EXAMINATION: Normal S1 and S2, no murmurs, gallops or rubs. RESPIRATORY EXAMINATION: Lungs clear to auscultation bilaterally. No accessory muscle use. No rales, ronchi, or wheezes. ABDOMINAL EXAMINATION: Soft and nontender. Normal bowel sounds throughout. EXTREMITIES: No clubbing, cyanosis, or edema. SKIN: Warm and moist. No rashes or lesions. NEUROLOGICAL EXAMINATION: Normal tone and muscle strength. PSYCHIATRIC EXAMINATION: Normal mood. Denies anxiety or depression. LABORATORY DATA: Please see below. IMAGING: Chest XRay 05/30/2016 showed a large consolidative opacity right mid and lower lung zone peripherally extending towards the hilum and a small right effusion. CT of chest on 05/30/2016 showed extensive peripheral consolidation and some air bronchograms right upper lobe, some in the superior segment right lower lobe and minimally in the lateral segment of the right middle lobe. This represented acute pneumonia. No gross mass or adenopathy at the hilum and mediastinum. Renal ultrasound on 05/30/2016 was normal. ACTIVITY: As tolerated. DIET: As tolerated. DISPOSITION: Home DISCHARGE INSTRUCTIONS: 1. Follow up with PCP (Xavi LAWRENCE) within 7-10 days 2. Continue antibiotics (Augmentin) provided at discharge for allotted time on prescription bottle. 3. Return to ED if shortness of breath increases in frequency or severity, coughing up blood, chest pain, or fainting occurs. DISCHARGE CONDITION: Stable. TIME SPENT ON DISCHARGE: Greater than minutes. Attending note: patient seen independently and discussed the case in depth with the resident. I agree with the treatment plan as outlined above. Vital Signs/I&Os Vital Signs Date Time Temp Pulse Resp B/P Pulse Ox O2 Delivery O2 Flow Rate FiO2 06/01/16 22:00 98.3 85 20 127/58 93 06/01/16 21:00 Room Air 06/01/16 04:00 2.0 I&O- Last 24 Hours up to 6 AM 06/02/16 06:00 Intake Total 2025 ml Output Total 1875 ml Balance 150 ml Laboratory Data Labs 24H Laboratory Tests 2 06/02/16 06:22: Albumin 2.2L, Blood Urea Nitrogen 41H, Creatinine 1.66H, Sodium Level 144, Potassium Level 3.5, Chloride Level 111H, Carbon Dioxide Level 24, Anion Gap 9, White Blood Count 9.3, Red Blood Count 4.25L, Hemoglobin 12.3L, Hematocrit 36.1L , Mean Corpuscular Volume 84.9, Mean Corpuscular Hemoglobin 29.1, Mean Corpuscular Hemoglobin Concent 34.2, Red Cell Distribution Width 13.5, Platelet Count 128L, Neutrophils (%) (Auto) 82.3H, Lymphocytes (%) (Auto) 10.3L, Monocytes (%) (Auto) 4.4, Eosinophils (%) (Auto) 1.5, Basophils (%) (Auto) 0.2, Neutrophils # (Auto) 7.7, Lymphocytes # (Auto) 1.1L, Monocytes # (Auto) 0.4, Eosinophils # (Auto) 0.1, Basophils # (Auto) 0.0, Calcium Level 8.0L, Glomerular Filtration Rate 42.2, Large Unclassified Cells # 0.1, Large Unclassified Cells % 1.3, Phosphorus Level 2.2L CBC/BMP Laboratory Tests 06/02/16 06:22 Anion Gap 9, Red Blood Count 4.25 L, Mean Corpuscular Volume 84.9, Mean Corpuscular Hemoglobin 29.1, Mean Corpuscular Hemoglobin Concent 34.2, Red Cell Distribution Width 13.5, Neutrophils (%) (Auto) 82.3 H, Lymphocytes (%) (Auto) 10.3 L, Monocytes (%) (Auto) 4.4, Eosinophils (%) (Auto) 1.5, Basophils (%) ( Auto) 0.2, Neutrophils # (Auto) 7.7, Lymphocytes # (Auto) 1.1 L, Monocytes # ( Auto) 0.4, Eosinophils # (Auto) 0.1, Basophils # (Auto) 0.0 Microbiology Microbiology 05/30/16 Blood Culture - Preliminary, Resulted No Growth after 48 hours. All Specime... 05/30/16 Blood Culture - Preliminary, Resulted No Growth after 48 hours. All Specime... 05/31/16 Clostridium difficile (PCR) - Final, Complete 05/31/16 Gram Stain - Final, Complete 05/31/16 Sputum Culture - Final, Complete 05/30/16 Influenza Virus Type A Antigen - Final, Complete 05/30/16 Influenza Virus Type B Antigen - Final, Complete 05/30/16 Urine Culture - Final, Complete Discharge Medications Scheduled Amoxicillin/Clavulanate Potas (Augmentin Xr 1000-62.5 mg) 1 Tab Tab 1 TAB PO BID Aspirin (Loraine Low Dose) 81 Mg Tab 81 MG PO DAILY (Reported) Atenolol (Atenolol) 50 Mg Tab 75 MG PO DAILY (Reported) Cyanocobalamin (B-12) 250 Mcg Tab 250 MCG PO DAILY (Reported) Hydrochlorothiazide (Hydrochlorothiazide) 25 Mg Tab 25 MG PO DAILY (Reported) Scheduled PRN Albuterol Sulfate (Albuterol Sulfate) 0.63 Mg/3 Ml Neb 0.63 MG INH PRN PRN PRN SHORTNESS OF BREATH Allergies Coded Allergies: No Known Allergies (Verified , 08/26/02) CATRACHITO ONTIVEROS DO Jun 02, 2016 07:49 LAINEY PICKETT DO Jun 03, 2016 16:14
== END 2016-06-02 08:58 | disposition home or self-care (01) | DRG 871 ==
LOC: M ED 10:18 → M ED INP 12:17 → M ICU 15:20 → M MSPAV 06-01 14:10
PROVIDERS: ADMIT General Practice; ATTEND Hospitalist
DX: A41.9 Sepsis, unspecified organism (principal); J18.9 Pneumonia, unspecified organism; J96.01 Acute respiratory failure with hypoxia; E87.2 Acidosis; N17.9 Acute kidney failure, unspecified; R65.20 Severe sepsis without septic shock; J44.9 Chronic obstructive pulmonary disease, unspecified; I10 Essential (primary) hypertension; Z79.82 Long term (current) use of aspirin; Z79.899 Other long term (current) drug therapy; R19.7 Diarrhea, unspecified